=== PATIENT | male | born 1995 | race African-American/Black ===

== ENCOUNTER 2018-09-19 09:39 | Outpatient (CLI) | payer SELFPAY ==
--- NOTE | 2018-09-19 11:39 | HP ---
HISTORY OF PRESENT ILLNESS: Mr. Jayjay Kapoor is a very pleasant 23-year-old gentleman who presents to the [facility] for evaluation of a nonhealing surgical wound of the plantar surface of the left foot subsequent to surgery for a diabetic foot infection at [facility] in [place], [place]. The patient states that the surgery included amputation of the fifth toe. The patient underwent the preceding procedure on 07/13/2018. The patient states that he was released from the hospital approximately 2 weeks later with instructions to utilize crutches for offloading. He states that he was seen in [place], [place] by Dr. Tai, and a total contact cast was applied to the left lower extremity. The patient states that he moved to [place], and Dr. Rangel at [facility] discontinued the cast which had been in place for 2 to 3 weeks. The patient states that for the nonhealing surgical wound of the plantar surface of his left foot, he has been cleansing the ulceration with Dove soap and water and dressing the wound with gauze after treating the wound with Betadine. The patient was referred to the Wound Center by Dr. Rangel on 09/05/2018. PAST MEDICAL HISTORY: Diabetes mellitus. PAST SURGICAL HISTORY: 1. Tympanostomy tube placement, right ear. 2. Surgery for diabetic foot infection, which included amputation of the fifth toe on 07/13/2018, as per HPI. MEDICATIONS: 1. Insulin 70/30. 2. Ciprofloxacin. ALLERGIES: NO KNOWN DIAGNOSED ALLERGIES. SOCIAL HISTORY: Social history is negative for tobacco or EtOH use. FAMILY HISTORY: Family history is significant for diabetes mellitus. The patient states that his mother as well as multiple relatives on the maternal side of his family were diagnosed with diabetes mellitus. Family history is negative for coronary artery disease. PHYSICAL EXAMINATION: VITAL SIGNS: Temperature 97.8, pulse 73, respirations 17, and blood pressure 135/83. Accu-Chek 213. GENERAL: A 23-year-old gentleman, sitting on chair in examination room, in no acute distress. HEENT: Normocephalic and atraumatic. NECK: No nuchal rigidity. CHEST: Clear to auscultation. CV: Regular rate and rhythm. ABDOMEN: Soft. EXTREMITIES: An ulceration of the plantar surface of the left foot is present, which measures approximately 1.2 x 1.3 cm. Granulation tissue is present within the wound margins. Nonviable tissue present within the wound margins was debrided with an excisional full-thickness debridement with the use of a curette. No purulent drainage was associated with the wound. No erythema of the skin surrounding the wound is present. No maceration of the skin of the periwound was noted. A pedal pulse is easily palpable on the left. No significant edema of the left foot is present on exam today. NEUROLOGIC: Grossly nonfocal. ASSESSMENT AND PLAN: 1. Nonhealing surgical wound of left foot on the plantar surface of the foot as described above. Dressing changes of Aquacel AG packing strips, 4x4s, and Kerlix will be initiated today. These dressing changes are to be performed on a daily basis after cleansing and irrigation. The patient will be performing his own dressing changes. The patient is to continue ciprofloxacin as previously prescribed. I will see Mr. Kapoor again in 2 weeks. The patient understands and is in agreement with the preceding treatment plan. 2. Diabetes mellitus. The patient's Accu-Chek in clinic today is 213. The patient has been told that for optimal wound healing, his blood glucoses should remain below 115. Job ID: [id number]
[2018-09-19] MEDS ORDERED: Sodium Chloride 0.9% 15 ML NEB ONE ×2 (15:49→20:00)
== END 2018-09-19 09:40 | disposition home or self-care (01) ==
LOC: WCC 09:39
PROVIDERS: ATTEND Family Medicine
DX: T81.89XD Other complications of procedures, not elsewhere classified, subsequent encounter (principal); E11.9 Type 2 diabetes mellitus without complications
CPT/HCPCS: 11042; 99203; A4218; G0463